=== PATIENT | male | born 1965 | race Caucasian/White ===

== ENCOUNTER 2019-04-01 13:57 | Outpatient (CLI) | payer BC, SELFPAY ==
[2019-04-01 14:19] LABS: Hemoglobin A1C 8.8 % (<5.7)
== END 2019-04-01 13:58 | disposition home or self-care (01) ==
PROVIDERS: PCP Internal Medicine; Visit Provider Internal Medicine
DX: E11.9 Type 2 diabetes mellitus without complications (principal)
CPT/HCPCS: 36415; 83036

== ENCOUNTER 2020-01-22 07:56 | Outpatient (CLI) | payer BC, SELFPAY ==
[2020-01-22 08:11] LABS: Basophils Absolute Auto 0.02 K/mm3 (0.00-0.10); Basophils Percent Auto 0.4 % (0.0-1.0); Eosinophils Absolute Auto 0.08 K/mm3 (0.02-0.50); Eosinophils Percent Auto 1.8 % (1.0-6.0); Hematocrit 44.1 % (40.0-54.0); Hemoglobin 14.9 g/dL (14.0-18.0); Immature Granulocyte Absolute 0.04 K/mm3 (0.00-0.00); Immature Granulocyte Percent A 0.9 % (0.0-0.0); Lymphocytes Absolute Auto 1.21 K/mm3 (1.10-4.50); Lymphocytes Percent Auto 26.9 % (18.0-42.0); Mean Corpuscular HGB Conc 33.8 g/dL (32.0-36.0); Mean Corpuscular Hemoglobin 28.8 pg (27.0-31.0); Mean Corpuscular Volume 85.1 fL (78.0-102.0); Mean Platelet Volume 10.7 fl (8.7-11.0); Monocytes Absolute Auto 0.51 K/mm3 (0.10-0.90); Monocytes Percent Auto 11.4 % (2.0-11.0); Neutrophils Absolute Auto 2.6 K/mm3 (1.7-7.2); Neutrophils Percent Auto 58.6 % (50.0-70.0); Platelet Count Result 190 K/mm3 (150-420); Red Blood Count 5.18 M/mm3 (4.70-6.10); Red Cell Distribution Width 13.6 % (11.6-14.4); White Blood Count 4.5 K/mm3 (4.8-10.8)
[2020-01-22 08:52] LABS: Alanine Aminotransferase 38 U/L (16-63); Albumin Level 4.2 g/dL (3.4-5.0); Alkaline Phosphatase 91 U/L (46-116); Anion Gap 11 mmol/L (8-16); Aspartate Amino Transferase 12 U/L (15-37); Bilirubin,Total 0.3 mg/dL (0.00-1.00); Blood Urea Nitrogen 13 mg/dL (7-18); Calcium 8.8 mg/dL (8.5-10.1); Carbon Dioxide 25 mmol/L (21-32); Chloride 102 mmol/L (98-108); Estimated Glomerular Filt Rate > 60; Glucose 227 mg/dL (70-99); Osmolality Calculated 293 mOsm/kg (285-295); Potassium 4.7 mmol/L (3.5-5.1); Sodium 138 mmol/L (136-145); Total Protein 6.9 g/dL (6.4-8.2)
== END 2020-01-22 07:57 | disposition home or self-care (01) ==
LOC: CHSLAB 07:58
PROVIDERS: PCP Internal Medicine; Visit Provider Internal Medicine
DX: E11.9 Type 2 diabetes mellitus without complications (principal)
CPT/HCPCS: 36415; 80053; 83036; 85025

== ENCOUNTER 2020-07-20 07:13 | Outpatient (CLI) | payer BC, SELFPAY ==
[2020-07-20 07:30] LABS: Basophils Absolute Auto 0.03 K/mm3 (0.00-0.10); Basophils Percent Auto 0.7 % (0.0-1.0); Eosinophils Absolute Auto 0.12 K/mm3 (0.02-0.50); Eosinophils Percent Auto 2.7 % (1.0-6.0); Hematocrit 43.2 % (40.0-54.0); Hemoglobin 14.8 g/dL (14.0-18.0); Immature Granulocyte Absolute 0.04 K/mm3 (0.00-0.00); Immature Granulocyte Percent A 0.9 % (0.0-0.0); Lymphocytes Absolute Auto 1.31 K/mm3 (1.10-4.50); Lymphocytes Percent Auto 29.6 % (18.0-42.0); Mean Corpuscular HGB Conc 34.3 g/dL (32.0-36.0); Mean Corpuscular Hemoglobin 28.2 pg (27.0-31.0); Mean Corpuscular Volume 82.3 fL (78.0-102.0); Mean Platelet Volume 10.1 fl (8.7-11.0); Monocytes Absolute Auto 0.43 K/mm3 (0.10-0.90); Monocytes Percent Auto 9.7 % (2.0-11.0); Neutrophils Absolute Auto 2.5 K/mm3 (1.7-7.2); Neutrophils Percent Auto 56.4 % (50.0-70.0); Platelet Count Result 213 K/mm3 (150-420); Red Blood Count 5.25 M/mm3 (4.70-6.10); Red Cell Distribution Width 13.1 % (11.6-14.4); White Blood Count 4.4 K/mm3 (4.8-10.8)
[2020-07-20 07:37] LABS: Add Urine Microscopic? YES; Appearance Urine Clear (Clear); Bilirubin Urine Negative (Negative); Blood Urine Negative (Negative); Color Urine Yellow (Yellow); Glucose Urine UA 3+ (Negative); Ketones Urine Negative (Negative); Leukocyte Esterase Ur Negative (Negative); Nitrate Urine Negative (Negative); Protein Urine Negative (Negative); Urobilinogen Urine 0.2 mg/dL (0.2-1.0); pH Urine 5.5 (5.0-8.0)
[2020-07-20 07:38] LABS: Hemoglobin A1C 7.8 % (<5.7)
[2020-07-20 07:55] LABS: Creatinine Urine 50.97 mg/dL (40-278); MALB Creatinine Ratio 25.5 mg/g (0-30); Microalbumin Urine Random < 13.0 mg/L
[2020-07-20 07:58] LABS: Bacteria Urine None seen /hpf; RBC Urine None seen /hpf (0-2); WBC Urine None seen /hpf (0-3)
[2020-07-20 08:46] LABS: Alanine Aminotransferase 31 U/L (16-63); Albumin Level 3.6 g/dL (3.4-5.0); Alkaline Phosphatase 96 U/L (46-116); Anion Gap 9 mmol/L (8-16); Aspartate Amino Transferase < 10 U/L (15-37); Bilirubin,Total 0.5 mg/dL (0.00-1.00); Blood Urea Nitrogen 17 mg/dL (7-18); Calcium 8.5 mg/dL (8.5-10.1); Carbon Dioxide 25 mmol/L (21-32); Chloride 98 mmol/L (98-108); Cholesterol 150 mg/dL (0-200); Estimated Glomerular Filt Rate > 60; Glucose 245 mg/dL (70-99); HDL Direct 36 mg/dL (40-60); LDL Cholesterol Calculated 67 mg/dL (<130); Osmolality Calculated 283 mOsm/kg (285-295); Potassium 4.8 mmol/L (3.5-5.1); Prostate Specific Antigen 1.2 ng/mL (< OR = 4.0); Sodium 132 mmol/L (136-145); Total Protein 6.4 g/dL (6.4-8.2); Triglycerides 236 mg/dL (0-150)
== END 2020-07-20 07:14 | disposition home or self-care (01) ==
LOC: CHSLAB 07:15
PROVIDERS: PCP Internal Medicine; Visit Provider Internal Medicine
DX: Z00.00 Encounter for general adult medical examination without abnormal findings (principal); E11.9 Type 2 diabetes mellitus without complications; J44.9 Chronic obstructive pulmonary disease, unspecified; Z12.5 Encounter for screening for malignant neoplasm of prostate
CPT/HCPCS: 36415; 80053; 80061; 81001; 82043; 83036; 84153; 85025; G0103

== ENCOUNTER 2021-02-02 15:48 | Outpatient (CLI) | payer BC, SELFPAY ==
[2021-02-02 16:13] LABS: Creatinine Urine 107.97 mg/dL (40-278); MALB Creatinine Ratio 12.5 mg/g (0-30); Microalbumin Urine Random 13.5 mg/L
[2021-02-02 16:53] LABS: Alanine Aminotransferase 46 U/L (16-63); Albumin Level 4.2 g/dL (3.4-5.0); Alkaline Phosphatase 94 U/L (46-116); Anion Gap 8 mmol/L (8-16); Aspartate Amino Transferase 12 U/L (15-37); Bilirubin,Total 0.3 mg/dL (0.00-1.00); Blood Urea Nitrogen 19 mg/dL (7-18); Calcium 9.3 mg/dL (8.5-10.1); Carbon Dioxide 30 mmol/L (21-32); Chloride 102 mmol/L (98-108); Estimated Glomerular Filt Rate > 60; Glucose 172 mg/dL (70-99); Osmolality Calculated 296 mOsm/kg (285-295); Potassium 4.6 mmol/L (3.5-5.1); Sodium 140 mmol/L (136-145); Thyroid Stimulating Hormone 1.51 uIU/mL (0.36-3.74)
== END 2021-02-02 15:49 | disposition home or self-care (01) ==
LOC: CHSLAB 15:50
PROVIDERS: PCP Internal Medicine; Visit Provider Internal Medicine
DX: E11.9 Type 2 diabetes mellitus without complications (principal); J44.9 Chronic obstructive pulmonary disease, unspecified
CPT/HCPCS: 36415; 80053; 82043; 83036; 84443

== ENCOUNTER 2021-02-11 08:12 | Emergency (ER) | payer BC, SELFPAY ==
--- NOTE | ~2021-02-11 | CT_ITS ---
EXAMINATION: CT abdomen pelvis wo con DATE: 02/11/2021 11:06 INDICATION: Left flank pain. TECHNIQUE: Computed tomography (CT) of the abdomen and pelvis was performed without intravenous contr ast. Automated exposure control and iterative reconstruction technique were employed. The dose-length product was 1172.40 mGy-cm. COMPARISON: Chest CT 07/07/2018 FINDINGS: The visualized portions of the lung bases demonstrates mild atelectasis and scarring in rig ht lower lobe. There is bronchiectasis in right lower lobe. There are groundglass opacities and small nodules in right lower lobe. Calcified bilateral lung nodules and calcified hilar lymph nodes are co nsistent with old granulomatous disease. There are old right rib fractures with plate and screw fixat ion of multiple ribs. The liver, gallbladder, spleen, pancreas, and left adrenal gland are normal. Ri ght adrenal gland is small. The kidneys are normal. There is no urolithiasis. The prostate is mildly enlarged. There is a filter in the inferior vena cava. There is a left inguinal hernia containing fat . There is diverticulosis of the colon without evidence of diverticulitis. The appendix is normal. Th ere are no dilated loops of bowel. There are no pathologically enlarged lymph nodes. There is no free intraperitoneal fluid. There is plate and screw fixation of the pubic symphysis. There is a lag scre w spanning the sacrum and iliac bones. There is a lag screw spanning left sacroiliac joint. There is mild thoracolumbar spondylosis. IMPRESSION: 1. Left inguinal hernia containing fat. 2. Chronic infection and bronchiectasis involving right lung lower lobe. Reviewed, dictated and finalized at location A. ING SALON ATTENDANT
[2021-02-11 09:00] VITALS: BP 148/92; PULSE 79; RESP 20; TEMP 36.7; O2SAT 96
[2021-02-11 09:20] LABS: Add Urine Microscopic? YES; Appearance Urine Clear (Clear); Bilirubin Urine Negative (Negative); Blood Urine Negative (Negative); Color Urine Light Yellow (Yellow); Glucose Urine UA 3+ (Negative); Ketones Urine Negative (Negative); Leukocyte Esterase Ur Negative (Negative); Nitrate Urine Negative (Negative); Protein Urine Negative (Negative); Specific Grav Ur 1.015 (1.010-1.020); Urobilinogen Urine 0.2 mg/dL (0.2-1.0)
[2021-02-11 09:24] LABS: Bacteria Urine None seen /hpf; RBC Urine 0-2 /hpf (0-2); Squamous Epithelial Cell Urine None seen /hpf (Few); WBC Urine 0-3 /hpf (0-3)
--- NOTE | 2021-02-11 10:42 | PC.NURSE ---
pt takes mulitple medications but no list or dose available
[2021-02-11] MEDS: KETOROLAC (*BKC) 60 MG/2 ML VIAL IM (11:03)
[2021-02-11 11:13] LABS: Basophils Absolute Auto 0.04 K/mm3 (0.00-0.10); Basophils Percent Auto 0.7 % (0.0-1.0); Eosinophils Absolute Auto 0.14 K/mm3 (0.02-0.50); Eosinophils Percent Auto 2.5 % (1.0-6.0); Hematocrit 45.1 % (40.0-54.0); Hemoglobin 15.8 g/dL (14.0-18.0); Immature Granulocyte Absolute 0.03 K/mm3 (0.00-0.00); Immature Granulocyte Percent A 0.5 % (0.0-0.0); Lymphocytes Absolute Auto 1.18 K/mm3 (1.10-4.50); Lymphocytes Percent Auto 21.1 % (18.0-42.0); Mean Corpuscular Hemoglobin 28.7 pg (27.0-31.0); Mean Platelet Volume 10.3 fl (8.7-11.0); Monocytes Absolute Auto 0.45 K/mm3 (0.10-0.90); Neutrophils Absolute Auto 3.8 K/mm3 (1.7-7.2); Neutrophils Percent Auto 67.2 % (50.0-70.0); Platelet Count Result 220 K/mm3 (150-420); White Blood Count 5.6 K/mm3 (4.8-10.8)
[2021-02-11 11:29] LABS: Alanine Aminotransferase 40 U/L (16-63); Albumin Level 3.8 g/dL (3.4-5.0); Alkaline Phosphatase 91 U/L (46-116); Anion Gap 9 mmol/L (8-16); Aspartate Amino Transferase 12 U/L (15-37); Bilirubin,Total 0.4 mg/dL (0.00-1.00); Blood Urea Nitrogen 16 mg/dL (7-18); Calcium 8.7 mg/dL (8.5-10.1); Carbon Dioxide 27 mmol/L (21-32); Chloride 102 mmol/L (98-108); Estimated CRCL calculation 132 ml/min; Estimated Glomerular Filt Rate > 60; Glucose 190 mg/dL (70-99); Osmolality Calculated 292 mOsm/kg (285-295); Potassium 4.5 mmol/L (3.5-5.1); Sodium 138 mmol/L (136-145)
--- NOTE | 2021-02-11 12:07 | ED.EXTPRO ---
HPI - Extremity Problem General Chief complaint: Extremity Problem,Nontraumatic Stated complaint: stabbing pain in left pelvis going down leg Time Seen by Provider: 02/11/21 09:01 Source: patient and RN notes reviewed Mode of arrival: ambulatory Limitations: no limitations History of Present Illness Complaint: extremity pain Onset (ago): week(s) (3) Location: left and lower extremity Severity scale (1-10): 7 Quality: aching, dull and constant Radiation: distal Relieving factors: nothing Exacerbating factors: walking Associated symptoms: denies other symptoms Related Data Home Medications Medication Instructions Recorded Confirmed Unable to Obtain Home Medications 02/11/21 02/11/21 Allergies Allergy/AdvReac Type Severity Reaction Status Date / Time No Known Allergies Allergy Unverified 04/09/17 09:30 Review of Systems Review of Systems: All systems reviewed & are unremarkable except as noted in HPI and below PMFSH Past Medical History Medical History (Updated 02/12/21 @ 10:01 by Inez Aguero MD) Sciatica of left side Exam Const: General: no acute distress and alert Nutritional Appearance: well nourished Orientation/consciousness: patient oriented x3 HENMT: Head: normal to inspection Ears: external ears normal and TM's normal bilaterally General nose exam: Normal external nose present and Normal nares present Mouth: Yes lip normal and Yes moist mucous membranes Teeth and gingiva: dentition normal Throat: posterior oropharynx normal Eyes: Conjunctivae: conjunctivae normal Pupils: Equal, round and reactive pupils present EOM: EOMs intact bilaterally Neck: Neck: normal visual inspection Chest: Chest palpation & inspection: normal inspection of the chest Resp: Effort & Inspection: normal respiratory effort Auscultation: rhonchi Cardio: Rate: regular rate Rhythm: regular rhythm GI: GI Palp: Yes Soft to palpation and No Tenderness to palpation present (GI) Percussion: Yes normal to percussion Auscultation: normal bowel sounds : General: Yes bladder normal to palpation and Yes no CVA tenderness Male General Exam: Yes normal external exam Back/Spine/Pelvis: Back: no CVA tenderness Other: minimally tender left posterior to lateral buttock on deep palpation Skin: General skin exam: normal color Rashes: no rashes Wounds: no wounds Neuro: General: patient oriented x3, moves all extremities, no focal motor deficits and CN's II-XI intact bilaterally Extrem: General: normal to inspection and no pedal edema Psych: Appearance: grossly normal and well kempt Mental Status: mental status grossly normal Affect: normal affect Thought content: Yes Normal thought content present Course Course Emergency Course: Pt was less pain-ful in the ED. Reevaluation(s) Reevaluation #1: VSS. pt ambulated normally in the ED. Date: 02/12/21 Time: 09:56 Vital Signs Vital signs: Vital Signs Temperature 36.7 C 02/11/21 09:00 Pulse Rate 79 02/11/21 09:00 Respiratory Rate 20 02/11/21 09:00 Blood Pressure 148/92 H 02/11/21 09:00 Pulse Oximetry 96 02/11/21 09:00 Temperature 36.7 C 02/11/21 09:00 Pulse Rate 78 02/11/21 12:20 Respiratory Rate 20 02/11/21 12:20 Blood Pressure 141/89 H 02/11/21 12:20 Pulse Oximetry 95 02/11/21 12:20 MDM - Extremity (Nontraumatic) Differential Diagnosis Differential diagnosis: Likely other (joint pain, arthritis, sciatica, ) Medical Records Attestation: I reviewed the patient's medical records. Lab Data Result diagrams: 02/11/21 11:08 02/11/21 11:08 Labs: Lab Results 02/11/21 02/11/21 02/11/21 Range/Units 09:05 11:08 11:08 WBC 5.6 (4.8-10.8) K/mm3 RBC 5.50 (4.70-6.10) M/mm3 Hgb 15.8 (14.0-18.0) g/dL Hct 45.1 (40.0-54.0) % MCV 82.0 (78.0-102.0) fL MCH 28.7 (27.0-31.0) pg MCHC 35.0 (32.0-36.0) g/dL RDW 13.0 (11.6-14.4) % Plt Count 220 (150-420
[2021-02-11 12:20] VITALS: BP 141/89; PULSE 78; RESP 20; O2SAT 95
== END 2021-02-11 12:24 | disposition home or self-care (01) ==
PROVIDERS: Emergency Provider Emergency Medicine; PCP Internal Medicine
DX: M54.32 Sciatica, left side (principal); J47.9 Bronchiectasis, uncomplicated
CPT/HCPCS: 36415; 74176; 80053; 81001; 85025; 96372; 99283; 99284; J1885

== ENCOUNTER 2021-11-16 07:51 | Outpatient (CLI) | payer BC, SELFPAY ==
--- NOTE | ~2021-11-16 | CT_ITS ---
EXAMINATION: CT lung screening DATE: 11/16/2021 09:42 INDICATION: Lung cancer screening TECHNIQUE: Computed tomography (CT) of the chest was performed without intravenous contrast. The dose -length product was 271.11 mGy-cm. Automated exposure control and iterative reconstruction technique were employed. COMPARISON: CT dated 07/07/2018 FINDINGS: Heart size is normal. There are calcified mediastinal lymph nodes, consistent with chronic granulomatous disease. There are scattered calcified bilateral pulmonary nodules. There is mild ather osclerosis of the aorta and coronary arteries. There is an IVC filter present. No significant pleural or pericardial effusion. There are surgical changes consistent with internal fixation of multiple ri ght ribs. Moderate thoracic spondylosis. There is emphysema. There is right lower lobe atelectasis/sc arring with bronchiectasis. There is an irregular shaped nodule in the right lower lobe measuring 1.5 x 0.4 cm, image 86. This is new compared with prior examination. Although this is possibly infectiou s/inflammatory, neoplasm not excluded. IMPRESSION: 1. Lung Rads category 4A, suspicious: follow-up low dose CT chest in 3 months or PET/CT recommended. Reviewed, dictated and finalized at location A. IMPRESSION: 1. Lung Rads category 4A, suspicious: follow-up low dose CT chest in 3 months o r PET/CT recommended.
--- NOTE | 2021-11-16 12:39 | WPDPFTINT ---
PFT Procedure Performed PFT Procedure Performed Spirometry with Pre/Post Bronchodilator Plethysmography (Lung Vol) Diffusing Cap (DLCO) Flow Vol Loop PFT Interpretation This is a pulmonary function test with pre and post-bronchodilator spirometry, plethysmography and diffusing capacity. The test was performed and results interpreted in accordance with the 2019 and 2005 ATS/ERS Task Force guidelines respectively using the Global Lung Function Initiative-2012 reference equations. Patient demonstrated good effort and cooperation. Reproducibility criteria were met. The quality of the pre bronchodilator spirometry maneuver was Grade A and post bronchodilator spirometry maneuver was Grade A. Findings: Spirometry: There is decreased maximal expiratory airflow at all lung volumes with concave expiratory flow tracing. Contour the inspiratory flow tracing is normal. The pre bronchodilator FVC is 3.29 L, 72% predicted. The pre bronchodilator FEV1 is 1.44 L, 40% predicted. The pre bronchodilator FEV1: FVC ratio is 44%. The post bronchodilator FVC is 3.55 L, representing an 8% increase. The post bronchodilator FEV1 is 1.62 L, representing a 180 ML increase which corresponds to a 12% increase. The post bronchodilator FEV1: FVC ratio is 46%. Plethysmography: The total lung capacity 6.57 L, 97% predicted. The functional residual capacity is 4.28 L, 123% predicted. The residual volume is 3.21 L, 152% predicted. Diffusing capacity: The diffusion capacity unadjusted for hemoglobin and carboxyhemoglobin is 21.1, 73% predicted. The diffusing capacity adjusted for alveolar volume is 4.35, 99% predicted. Impression: There is a severe obstructive abnormality without significant improvement after inhaling a single dose of albuterol as the absolute increase in FEV1 was less than 200 mL. The increase in residual volume is consistent with air trapping from an obstructive abnormality. The diffusing capacity is normal. There are no prior studies for comparison
--- NOTE | 2021-11-16 12:43 | WPDSIXMINUTE ---
Six Minute Walk Procedure Procedure Performed Pulmonary Stress Test (6 min walk) Six Minute Walk Six Minute Walk: This is a 6 minute walk test. The test was performed and interpreted in accordance with the 2014 ERS/ATS task force guidelines. Findings: The patient's resting room air oxygen saturation measured by pulse oximetry was 94% and heart rate was 78 bpm. Patient ambulated for 396 meters and oxygen saturation remained 89 to 94%. Heart rate at the end of the study was 100 bpm. The patient did not qualify for supplemental oxygen at rest or with ambulation. There are no prior studies for comparison.
== END 2021-11-16 07:52 | disposition home or self-care (01) ==
PROVIDERS: PCP Internal Medicine; Visit Provider Internal Medicine Pulmonary Disease
DX: J40 Bronchitis, not specified as acute or chronic (principal); R06.00 Dyspnea, unspecified; Z87.891 Personal history of nicotine dependence; Z12.2 Encounter for screening for malignant neoplasm of respiratory organs; R91.8 Other nonspecific abnormal finding of lung field; R94.2 Abnormal results of pulmonary function studies
CPT/HCPCS: 71271; 94060; 94618; 94726; 94729

== ENCOUNTER 2021-11-21 07:57 | Outpatient (CLI) | payer BC, SELFPAY ==
--- NOTE | 2021-12-21 14:33 | WPDSLEEPSTUD ---
Sleep Study Date of Study: 11/21/21 Ordering Provider: Eren Rosario MD Interpreting Physician: Maria Elena Gaming DO Sleep Study Type: Polysomnogram Height: 1.75 m Weight: 102.058 kg Body Mass Index: 33.2 Neck Circumference (inches): 16.5 [place]: 6 Reason for Sleep Study The patient has known EVANGELISTA and is on CPAP 9 cm H2O at home. Needs new supplies. Sleep History The patient is a 56-year-old male with diabetes, GERD, neuropathy, COPD, history of tobacco use sleep apnea had a sleep study ordered his [place] [employer] to requalify for PAP Therapy. 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 He occasionally awakens from sleep short of breath. He denies awakening at night with heartburn, belching or cough. He constantly snores loud enough that others complain. He frequently has trouble sleeping when he has a cold. He frequently wakes up gasping for air throughout the night. He frequently has breathing problems at night observed by himself or others. He denies sweating excessively at night. He denies having heart palpitations or irregular heartbeats during the night. He occasionally falls asleep during the day but never while driving. He denies sleep paralysis, cataplexy and hypnagogic / hypnopompic hallucinations. He frequently has trouble at school or work due to sleepiness. He denies feeling afraid of going to sleep. He denies having nightmares. He denies remember his dreams. He denies having thoughts racing through his mind. He denies feeling sad, depressed or anxious. He occasionally has muscular tension. He occasionally notices parts of his body jerk. He occasionally kicks during the night. He frequently has crawling and aching feelings in his legs but never has leg pain throughout the night. He occasionally grinds his teeth during sleep but never awakens with morning jaw pain. He is constantly bothered by pain during the day but never awakened by pain during the night. He frequently wakes up feeling stiff the morning. He frequently wakes up with sore or achy muscles. He frequently wakes up with pain in the neck, spine or other joints. He goes to bed between 7-8 p.m. on weekdays. He does not have a set bedtime on the weekends. He can fall asleep instantly. He wakes up twice throughout the night to use the restroom. He can fall back asleep immediately. He wakes up at 4:00 a.m. on weekdays but does not have a set wake-up time on the weekends. He typically gets 8-10 hours of sleep per night. He does not stay in bed after waking morning. He currently lives with his . He will consume caffeinated beverages within 2 hours of bedtime. He does not engage in physical exercise before bedtime. He will watch television before falling asleep. He will take naps in the afternoon or the evening and they are refreshing. He drinks 2 coffees and 2 teas per day. He quit smoking cigarettes 9 years ago. He drinks alcohol occasionally. He denies recreational drug use. [facility] Past Medical History Medical History (Updated 12/21/21 @ 14:55 by Maria Elena Gaming DO) COPD (chronic obstructive pulmonary disease) Diabetes GERD (gastroesophageal reflux disease) EVANGELISTA (obstructive sleep apnea) Sciatica of left side Social History Social History Smoking status: Former smoker Medications Home Medications Medication Instructions Recorded Confirmed Type ibuprofen 800 mg tablet 800 mg PO TID PRN pain #20 tabs 02/11/21 11/06/21 Rx omeprazole magnesium 20 mg 20 mg PO BID #20 tabs 02/11/21 11/06/21 Rx tablet,delayed release (Prilosec OTC) tramadol 50 mg tablet 50 mg PO BID PRN pain #6 tabs 02/11/21 11/06/21 Rx Sleep Procedure This test was performed using the [employer] SleepZinch multiple channel system including EOG, EEG, submental EMG, EKG, nasal and oral airflow using thermistors and nasal pressure sensors, chest and abdominal belts for body position data, and pul
[2021-12-21 14:42] VITALS: BMI 33.2
== END 2021-11-22 06:47 | disposition home or self-care (01) ==
LOC: ANHCSM 07:59
PROVIDERS: PCP Internal Medicine; Visit Provider Internal Medicine Pulmonary Disease
DX: G47.33 Obstructive sleep apnea (adult) (pediatric) (principal); G47.10 Hypersomnia, unspecified
CPT/HCPCS: 95810

== ENCOUNTER 2022-02-04 14:13 | Outpatient (CLI) | payer BC, SELFPAY ==
--- NOTE | ~2022-02-04 | XR_ITS ---
EXAMINATION: XR chest 2V DATE: 02/04/2022 14:33 INDICATION: COPD presenting with pneumonia, cough, congestion and fever TECHNIQUE: PA and lateral views of the chest were obtained. COMPARISON: Chest radiograph dated 05/26/[address] dated 11/16/2021 and 07/07/2018 FINDINGS: Stable appearance of coarse reticular opacities in the posterior right lower lung zone consistent wit h chronic atelectasis/scarring with associated mild bronchiectasis. Again seen are few scattered bila teral calcified pulmonary nodules along with calcified hilar and mediastinal lymph nodes consistent w ith old granulomatous disease. No new airspace opacities, pulmonary edema, pleural effusion or pneumo thorax. The cardiomediastinal silhouette is normal. Plate and screw fixation along the posterolateral right fourth-eighth rib fractures. IMPRESSION: 1. Stable appearance of chronic atelectasis/scarring with bronchiectasis in the right lower lobe. Reviewed, dictated and finalized at location A. ING SERVICE TECHNICIAN
== END 2022-02-04 14:14 | disposition home or self-care (01) ==
LOC: CHSIMG 14:15
PROVIDERS: PCP Internal Medicine; Visit Provider Internal Medicine
DX: J18.9 Pneumonia, unspecified organism (principal); J44.9 Chronic obstructive pulmonary disease, unspecified
CPT/HCPCS: 71046

== ENCOUNTER 2022-02-06 08:50 | Emergency (ER) | payer BC, SELFPAY ==
--- NOTE | ~2022-02-06 | CT_ITS ---
EXAMINATION: CT diagnostic chest wo con DATE: 02/06/2022 10:03 INDICATION: Cough, fever, shortness of breath TECHNIQUE: Computed tomography (CT) of the chest was performed without intravenous contrast. The dose -length product (DLP) was 483.70 mGy-cm. Automated exposure control and iterative reconstruction tech [place] were employed. COMPARISON: 11/16/2021 FINDINGS: A 2.3 x 0.8 cm nodule of the right lower lobe demonstrates interval enlargement since the c omparison examination. There is moderate emphysema. Calcified pulmonary nodules and calcified bilater al hilar and mediastinal lymph nodes are consistent with old granulomatous disease. There are minimal chronic tree-in-bud opacities of the right lower lobe as well as mild chronic bronchiectasis with a lower lung zone predominance. There are minimal tree-in-bud opacities of the upper lobes. No pleural effusion or pneumothorax. Surgical changes involving multiple right-sided ribs are again noted. There is mild bilateral gynecomastia. No pathologically enlarged thoracic lymph nodes are identified. The heart size is normal. There is moderate thoracic spondylosis. IMPRESSION: 1. Minimal tree-in-bud opacities of the upper lobes, likely infectious or inflammatory. 2. Enlarging right lower lobe nodule for which CT-guided biopsy is recommended. Reviewed, dictated and finalized at location A. MACEUTICAL PROCESS ENGINEER IMPRESSION: 1. Minimal tree-in-bud opacities of the upper lobes, likely infectious or infla mmatory. 2. Enlarging right lower lobe nodule for which CT-guided biopsy is recommended.
[2022-02-06 08:50] VITALS: BP 155/86; PULSE 106; RESP 20; TEMP 37.6; O2SAT 94
--- NOTE | 2022-02-06 09:26 | ECG_ITS ---
Measurements Intervals [place] Rate: 103 P: 61 OK: 154 QRS: 57 QRSD: 90 T: 67 QT: 326 QTc: 428 Interpretive Statements SINUS TACHYCARDIA ABNORMAL RHYTHM ECG NO PREVIOUS ECG AVAILABLE FOR COMPARISON Electronically Signed On 02-06-2022 15:51:48 SHOULDER JOINER by Noemi Owens M.D.
[2022-02-06] MEDS: IPRATROPIUM 0.5 MG/ALBUTEROL SULFATE 2.5 MG AMPUL.NEB 3 ML INHALATION (09:40)
[2022-02-06 09:41] VITALS: PULSE 98; RESP 18; O2SAT 94
[2022-02-06 09:41] LABS: Hematocrit 41.8 % (40.0-54.0); Hemoglobin 14.1 g/dL (14.0-18.0); Mean Corpuscular HGB Conc 33.7 g/dL (32.0-36.0); Mean Corpuscular Hemoglobin 28.1 pg (27.0-31.0); Mean Corpuscular Volume 83.4 fL (78.0-102.0); Mean Platelet Volume 10.1 fl (8.7-11.0); Platelet Count Result 188 K/mm3 (150-420); Red Blood Count 5.01 M/mm3 (4.70-6.10); Red Cell Distribution Width 13.6 % (11.6-14.4); White Blood Count 3.9 K/mm3 (4.8-10.8)
[2022-02-06 09:42] LABS: Base Excess ABG 0.1 mmol/L (0-2); HCO3 ABG 23.7 mmol/L (23-29); Oxygen Content ABG 19.6 %vol (16.0-22.0); Oxygen Saturation ABG 94.2 % (95-97); Oxyhemoglobin 93.4 % (94-100); PCO2 ABG 35.7 mmHg (35-45); PO2 ABG 70.6 mmHg (80-90); Total Hemoglobin 14.9 g/dL (12.0-18.0); pH ABG 7.44 (7.35-7.45)
[2022-02-06 09:42] LABS: Influenza A QL RT-PCR Positive (Negative); Influenza B QL RT-PCR Negative (Negative); RSV RNA, RT-PCR Negative (Negative); SARS-CoV-2 RNA PCR Negative (Negative)
[2022-02-06 09:43] LABS: Modified Allen's Test Pass; Site Drawn LEFT RADIAL
[2022-02-06 09:44] LABS: Device ROOM AIR
[2022-02-06 09:47] VITALS: PULSE 101; RESP 13; O2SAT 98
[2022-02-06 10:03] LABS: Lactic Acid Reflex 1.2 mmol/L (0.4-2.0)
[2022-02-06] MEDS: SODIUM CHLORIDE 0.9% IV 500 ML 999 ML IV CONT (10:05)
[2022-02-06] MEDS: ACETAMINOPHEN 325 MG TABLET 650 MG PO (10:06)
[2022-02-06] MEDS: methylPREDNISolone SOD SUCC 125 MG VIAL IV PUSH (10:06)
[2022-02-06 10:10] LABS: Alanine Aminotransferase 35 U/L (16-63); Albumin Level 3.1 g/dL (3.4-5.0); Alkaline Phosphatase 70 U/L (46-116); Anion Gap 10 mmol/L (8-16); Aspartate Amino Transferase 24 U/L (15-37); Bilirubin,Total 0.3 mg/dL (0.00-1.00); Blood Urea Nitrogen 17 mg/dL (7-18); Calcium 8.5 mg/dL (8.5-10.1); Carbon Dioxide 25 mmol/L (21-32); Chloride 99 mmol/L (98-108); Estimated CRCL calculation 103 ml/min; Estimated Glomerular Filt Rate > 60; Glucose 254 mg/dL (70-99); NT Pro B Type Natriuretic Pept 24 pg/mL (0-125); Osmolality Calculated 288 mOsm/kg (285-295); Potassium 4.1 mmol/L (3.5-5.1); Sodium 134 mmol/L (136-145); Troponin I 5.5 ng/L (0.00-60.4)
[2022-02-06 10:14] LABS: Add Urine Microscopic? YES; Appearance Urine Clear (Clear); Bilirubin Urine Negative (Negative); Blood Urine Negative (Negative); Color Urine Yellow (Yellow); Glucose Urine UA 3+ (Negative); Ketones Urine 2+ (Negative); Leukocyte Esterase Ur Negative (Negative); Nitrate Urine Negative (Negative); Protein Urine 1+ (Negative)
[2022-02-06 10:16] LABS: Band Neutrophils Percent 4 % (0-6); Lymphocytes Absolute Manual 0.35 K/mm3 (1.1-4.5); Lymphocytes Percent Manual 9 % (18-44); Monocytes Absolute Manual 0.15 K/mm3 (0.1-0.90); Monocytes Percent Manual 4 % (3-9); Neutrophils Absolute Manual 3.39 K/mm3 (1.3-6.7); Neutrophils Percent Manual 83 % (46-73); Platelet Estimate Adequate (Adequate); Total Cells Counted 100
[2022-02-06 10:20] LABS: RBC Urine None seen /hpf (0-2); WBC Urine None seen /hpf (0-3)
[2022-02-06 10:21] LABS: Bacteria Urine Trace /hpf
[2022-02-06 12:06] VITALS: BP 140/80; PULSE 82; RESP 19; TEMP 37.2; O2SAT 96
--- NOTE | 2022-02-06 12:58 | ED.URI ---
HPI - URI/Sore Throat General Chief Complaint: Upper Respiratory Infection Stated Complaint: sob Time Seen by Provider: 02/06/22 08:52 Source: patient and RN notes reviewed Mode of arrival: ambulatory History of Present Illness MD elicited complaint: fever, cough and nasal congestion Pertinent past history: COPD Onset (ago): day(s) (2) Consistency: progressively worsening Severity: moderate Pain scale (0-10): 3 Able to tolerate fluids by mouth: Yes Exacerbating factors: nothing Relieving factors: cough suppressant Associated symptoms: fever, chills, myalgias, nasal congestion, cough and shortness of breath Related Data Home Medications Medication Instructions Recorded Confirmed albuterol sulfate 0.63 mg/3 mL 0.63 mg inhalation Q4-6H PRN 01/01/22 02/06/22 solution for nebulization Shortness Of Breath Or Wheezing albuterol sulfate 90 mcg/actuation 1 puff inhalation Q4H PRN 01/01/22 02/06/22 aerosol inhaler Shortness Of Breath Or Wheezing aspirin 81 mg tablet,delayed 81 mg PO DAILY 01/01/22 02/06/22 release gabapentin 300 mg capsule 300 mg PO BID 01/01/22 02/06/22 glimepiride 2 mg tablet 2 mg PO QAM 01/01/22 02/06/22 metformin 500 mg tablet 500 mg PO BID 01/01/22 02/06/22 montelukast 10 mg tablet 10 mg PO DAILY 01/01/22 02/06/22 pantoprazole 40 mg tablet,delayed 40 mg PO QAM 01/01/22 02/06/22 release ropinirole 0.5 mg tablet 0.5 mg PO .prn 01/01/22 02/06/22 tiotropium bromide 2.5 1 puff inhalation BID 01/01/22 02/06/22 mcg/actuation mist for inhalation (Spiriva Respimat) Allergies Allergy/AdvReac Type Severity Reaction Status Date / Time No Known Allergies Allergy Unverified 01/01/22 13:55 Review of Systems Review of Systems: All systems reviewed & are unremarkable except as noted in HPI and below Constitutional: Constitutional: Reports no additional constitutional complaints Eyes: Eyes: Reports no additional eye complaints ENT: Reports system reviewed and no additional complaints, except as documented Cardiovascular: Cardiovascular: Reports no additional cardiovascular complaints Respiratory: Respiratory: Reports no additional respiratory complaints Gastrointestinal: Gastrointestinal: Reports no additional gastrointestinal complaints Musculoskeletal: Musculoskeletal: Reports no additional musculoskeletal complaints Integumentary/Breasts: Skin/Breast: Reports system reviewed and no additional complaints, except as docu Neurologic: Reports system reviewed and no additional complaints, except as documented Psychiatric: Psychiatric: Reports no additional psychiatric complaints Endocrine: Endocrine: Reports no additional endocrine complaints Hematologic/Lymphatic: Hematologic/Lymphatic: Reports no additional hematologic/lymphatic complaints Allergic/Immunologic: Allergic/Immunologic: Reports no additional allergic/immunologic complaints PMFSH Past Medical History Medical History Bronchitis COPD (chronic obstructive pulmonary disease) Diabetes GERD (gastroesophageal reflux disease) EVANGELISTA (obstructive sleep apnea) Sciatica of left side Social History Social History Smoking packs per day: 1.5 Smoking cigarettes per day: 30.0 Years smoked: 16 Smoking pack-years: 24.00 Smoking status: Former smoker Exam Const: General: no acute distress, diaphoretic (mild) and well nourished Nutritional Appearance: well nourished Orientation/consciousness: patient oriented x3 Limitations: no limitations HENMT: Head: normal to inspection Ears: external ears normal, TM's normal bilaterally and EAC's normal Face/Nose/Sinus: Normal external nose present, Normal nares present, normal facial exam and sinuses nontender Face and sinus: normal facial exam and sinuses nontender Mouth: Yes Normal oral and palatal mucosa present and Yes moist mucous membranes Teeth and gingiva: dentition norm
[2022-02-06 13:17] VITALS: BP 108/73; PULSE 76; RESP 20; TEMP 36.9; O2SAT 97
== END 2022-02-06 13:28 | disposition home or self-care (01) ==
PROVIDERS: Emergency Provider Emergency Medicine; PCP Internal Medicine
DX: J44.9 Chronic obstructive pulmonary disease, unspecified (principal); E11.9 Type 2 diabetes mellitus without complications; Z79.82 Long term (current) use of aspirin; Z87.891 Personal history of nicotine dependence; Z20.822 Contact with and (suspected) exposure to COVID-19
CPT/HCPCS: 36415; 36600; 71250; 80053; 81001; 82805; 83605; 83880; 84484; 85025; 87637; 93005; 94640; 96361; 96365; 96375; 99284; A9270; J0696; J2930; J7040

== ENCOUNTER 2022-02-15 07:39 | Outpatient (CLI) | payer BC, SELFPAY ==
--- NOTE | ~2022-02-15 | CT_ITS ---
EXAMINATION: CT diagnostic chest wo con DATE: 02/15/2022 08:05 INDICATION: lung nodule TECHNIQUE: Computed tomography (CT) of the chest was performed without intravenous contrast. Addition al 3D reconstructions utilizing coronal maximum intensity projection (MIP) were performed. Automated exposure control and iterative reconstruction technique were employed. The dose-length product was 49 1.24 mGy-cm. COMPARISON: 02/06/2022 FINDINGS: Mild emphysema. There several scattered bilateral calcified pulmonary nodules along with calcified bi lateral hilar and mediastinal lymph nodes and a single splenic calcific location, all consistent with old granulomatous disease. Chronic scarring in the right lower lobe which may be related to prior tr auma given that it underlies multiple old healed rib fractures with plate and screw fixations. There are bronchiectatic changes within this region of scarring. Interval resolution of mucus which had pre viously been feeling of the region of bronchiectasis which accounted for the artifactual appearance o f enlarging right lower lobe nodule and with interval decrease in outer diameter of the now air-fille d dilated bronchus. There are a few additional unchanged <4 mm pulmonary nodules and likely intrafiss ural lymph nodes primarily in the left upper lobe and along the left major fissure. No other new or e nlarging pulmonary nodules. Heart size is normal. No pericardial or pleural effusion. Thoracic aorta is normal in caliber. No pathologically enlarged thoracic lymphadenopathy. Bilateral gynecomastia. Pa rtially visualized infrarenal IVC filter. 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 Incidentally noted is an adjacent right-s ided os acromiale. Partially visualized anterior and posterior spinal fusion at C6-C7 with bilateral vertical liam and pedicle screw fixation which appears on the boomswing operator topogram to extend cephalad to at least the C5 level. IMPRESSION: 1. The irregular enlarging nodule of concern on the prior study appears to have represented now resol otilio mucus filling of a now gas-filled dilated bronchus. No new or enlarging pulmonary nodules identif ied. Given the interval change in the lung findings would not be categorized as Lung-RADS category 2: Benign appearance or behavior. Continue annual screening with noncontrast low-dose chest CT in 12 mo nt. Reviewed, dictated and finalized at location B. L SHAPER HAND IMPRESSION: 1. The irregular enlarging nodule of concern on the prior study appears to have represented now resolved mucus filling of a now gas-filled dilated bronchus. N o new or enlarging pulmonary nodules identified. Given the interval change in t he lung findings would not be categorized as Lung-RADS category 2: Benign appea erickson or behavior. Continue annual screening with noncontrast low-dose chest CT in 12 months.
== END 2022-02-15 07:40 | disposition home or self-care (01) ==
PROVIDERS: PCP Internal Medicine; Visit Provider Internal Medicine Pulmonary Disease
DX: R91.1 Solitary pulmonary nodule (principal)
CPT/HCPCS: 71250

== ENCOUNTER 2023-02-19 09:40 | Outpatient (CLI) | payer BC, SELFPAY ==
--- NOTE | ~2023-02-19 | CT_ITS ---
EXAMINATION:CT lung screening DATE: 02/19/2023 10:04 INDICATION: Personal history of nicotine dependence. Smoker who quit 8 years ago with 51 pack year hi story. TECHNIQUE: Computed tomography (CT) of the chest was performed without intravenous contrast. Automate d exposure control and iterative reconstruction technique were employed. The dose-length product (DLP ) was 267.12 mGy-cm. COMPARISON: Chest CT 02/15/2022 FINDINGS: There is mild emphysema. Calcified pulmonary nodules and calcified hilar and mediastinal ly mph nodes are consistent with old granulomatous disease. There are a few small groundglass opacities in the lungs. There is chronic peripheral septal thickening in right lung. There is peripheral bronch iectasis in right lower lobe. There are a few nodules in right middle lobe and right lower lobe measu ring up to 4 mm, probably infection. No pleural effusion. The heart size is normal. No pericardial ef fusion. There is bilateral gynecomastia. There is a filter in the inferior vena cava. There are multi ple old right rib fractures. There is plate and screw fixation of multiple right ribs. There is an ol d healed fracture of right clavicle. There are changes of posterior fusion procedure in cervical spin e. There is mild chronic anterior wedging of multiple vertebral bodies. There is moderate thoracic sp ondylosis. IMPRESSION: 1. Lung-RADS category 3: Probably benign. Further evaluation is recommended with noncontrast low-dose chest CT in 6 months. Reviewed, dictated and finalized at location E. [employer] IMPRESSION: 1. Lung-RADS category 3: Probably benign. Further evaluation is recommended wit h noncontrast low-dose chest CT in 6 months.
== END 2023-02-19 09:41 | disposition home or self-care (01) ==
PROVIDERS: PCP Internal Medicine; Visit Provider Internal Medicine Pulmonary Disease
DX: Z12.2 Encounter for screening for malignant neoplasm of respiratory organs (principal); R91.8 Other nonspecific abnormal finding of lung field; Z87.891 Personal history of nicotine dependence
CPT/HCPCS: 71271

== ENCOUNTER 2023-11-05 15:09 | Outpatient (CLI) | payer BC, SELFPAY ==
--- NOTE | ~2023-11-05 | CT_ITS ---
EXAMINATION:CT diagnostic chest wo con DATE: 11/05/2023 15:26 INDICATION: Solitary pulmonary nodule. TECHNIQUE: Computed tomography (CT) of the chest was performed without intravenous contrast. Automate d exposure control and iterative reconstruction technique were employed. The dose-length product (DLP ) was 274.95 mGy-cm. COMPARISON: Chest CT 02/19/2023 FINDINGS: There is mild emphysema. Calcified pulmonary nodules and calcified hilar mediastinal lymph nodes are consistent with old granulomatous disease. There is bronchiectasis in right lower lobe. The re are chronic tree-in-bud opacities in right lower lobe. There is mild atelectasis and scarring in r ight lower lobe. No pleural effusion. The heart size is normal. There are coronary artery calcificati ons. No pericardial effusion. There is a filter in the inferior vena cava. There is mild bilateral gy necomastia. There are old healed rib fractures. There is plate and screw fixation of multiple right r ibs. There is mild thoracic spondylosis. There is mild chronic anterior wedging of multiple vertebral bodies. IMPRESSION: 1. Lung-RADS category 2: Benign appearance or behavior. Continue annual screening with noncontrast lo w-dose chest CT in 12 months. Reviewed, dictated and finalized at location A. IMPRESSION: 1. Lung-RADS category 2: Benign appearance or behavior. Continue annual screeni ng with noncontrast low-dose chest CT in 12 months.
== END 2023-11-05 15:10 | disposition home or self-care (01) ==
LOC: ANHIMG 15:13
PROVIDERS: PCP Internal Medicine; Visit Provider Internal Medicine Pulmonary Disease
DX: R91.1 Solitary pulmonary nodule (principal)
CPT/HCPCS: 71250

== ENCOUNTER 2024-09-27 00:35 | Day surgery (SDC) | payer BC, SELFPAY ==
[2024-06-03 12:29] VITALS: BMI 31.8
[2024-09-08 15:19] VITALS: BMI 31.8
--- NOTE | 2024-09-27 07:28 | WPDANESEPPF ---
Anes - Initial Pre Proc Eval Procedure: Operation Date: 09/27/24 10:00 Proposed Procedures p Colonoscopy - Simone Tuttle MD Date/Time: 09/27/24 07:28 Surgeon: Simone Tuttle MD Pre Op Diagnosis: Benign neoplasm of colon Patient Data Age: 59 Gender: M Height: 1.75 m Weight: 97.7 kg Allergies Allergy/AdvReac Type Severity Reaction Status Date / Time garlic Allergy Severe Chest Pain Verified 09/27/24 08:53 Home Medications ?Medication ?Instructions ?Recorded ?Confirmed ?Type aspirin 81 mg tablet,delayed 81 mg PO DAILY 01/01/22 09/27/24 History release gabapentin 300 mg capsule 300 mg PO BID 01/01/22 09/27/24 History metformin 500 mg tablet 500 mg PO BID 01/01/22 09/27/24 History pantoprazole 40 mg tablet,delayed 40 mg PO QAM 01/01/22 09/27/24 History release albuterol sulfate 90 mcg/actuation 1 puff inhalation Q4H PRN 05/01/22 06/03/24 Rx aerosol inhaler Shortness Of Breath Or Wheezing #8.5 grams budesonide 160 mcg-glycopyr 9 See Rx Instructions .Route 07/17/23 09/27/24 Rx mcg-formot 4.8 mcg/actuation HFA .COMPLEX #10.7 grams inhaler (Breztri [employer]osphere) albuterol sulfate 0.63 mg/3 mL 0.63 mg inhalation Q4-6H PRN 12/09/23 06/03/24 History solution for nebulization shortness of breath or wheezing dulaglutide 3 mg/0.5 mL 3 mg subcut WEEKLY 12/09/23 09/27/24 [facility] montelukast 10 mg tablet 10 mg PO DAILY 09/08/24 09/27/24 History Patient hx anesthesia problems: none Family hx anesthesia problems: none Results Review: All pre-operative results and documents have been reviewed as part of the pre-operative evaluation. [facility] Past Medical History Medical History (Updated 09/27/24 @ 09:15 by Simone Tuttle MD) Colon polyp Bronchitis EVANGELISTA (obstructive sleep apnea) Diabetes GERD (gastroesophageal reflux disease) COPD (chronic obstructive pulmonary disease) Sciatica of left side Social History Social History Smoking packs per day: 1 Smoking cigarettes per day: 20.0 Years smoked: 35 Smoking pack-years: 35.00 Smoking status: Former smoker Tobacco type: cigarettes Smoking end date: 09/04/12 Alcohol intake: current Drinks per week: 6 Substance use: never Substance use type: does not use Living arrangements: with family Spiritual care concerns: No Anes - Eval Final PreProcedure Day of Procedure 09/27/24 07:28 Patient weight: obese Heart: regular rate and rhythm Lungs: clear to auscultation Airway: Mallampati scale class II Neurological: alert and oriented Last oral intake: >/= 8 hours ASA classification: III Emergent: no Anesthetic plan: proceed Anesthesia type and monitoring: general GIVS and standard monitoring Results Review: All pre-operative results and documents have been reviewed as part of the pre-operative evaluation. Informed Consent: The patient's anesthetic plan and its attendant risks and benefits were discussed with the patient/family/POA. Questions were solicited and answers provided to the satisfaction of the patient/family/POA.
[2024-09-27 08:58] VITALS: BP 141/89; PULSE 78; RESP 19; TEMP 36.2; O2SAT 98
[2024-09-27] MEDS: LACTATED RINGERS 1,000 ML 150 ML IV CONT (09:09)
--- NOTE | 2024-09-27 09:14 | P.HP_ITS ---
History of Present Illness History of Present Illness Consent: Risks, benefits, and alternatives have been discussed and questions answered. Patient agrees to proceed with procedure. Chief complaint: Benign neoplasm of colon Narrative: Skinny Valdivia is a 59 year old male with colon polyp 5 years ago Review of Systems Review of Systems: All systems reviewed & are unremarkable except as noted in HPI and below PMFSH Past Medical History Medical History (Updated 09/27/24 @ 09:15 by Simone Tuttle MD) Colon polyp Bronchitis EVANGELISTA (obstructive sleep apnea) Diabetes GERD (gastroesophageal reflux disease) COPD (chronic obstructive pulmonary disease) Sciatica of left side Social History Social History Smoking packs per day: 1 Smoking cigarettes per day: 20.0 Years smoked: 35 Smoking pack-years: 35.00 Smoking status: Former smoker Tobacco type: cigarettes Smoking end date: 09/04/12 Alcohol intake: current Drinks per week: 6 Substance use: never Substance use type: does not use Living arrangements: with family Spiritual care concerns: No Meds Home Medications and Allergies Home Medications ?Medication ?Instructions ?Recorded ?Confirmed ?Type aspirin 81 mg tablet,delayed 81 mg PO DAILY 01/01/22 09/27/24 History release gabapentin 300 mg capsule 300 mg PO BID 01/01/22 09/27/24 History metformin 500 mg tablet 500 mg PO BID 01/01/22 09/27/24 History pantoprazole 40 mg tablet,delayed 40 mg PO QAM 01/01/22 09/27/24 History release albuterol sulfate 90 mcg/actuation 1 puff inhalation Q4H PRN 05/01/22 06/03/24 Rx aerosol inhaler Shortness Of Breath Or Wheezing #8.5 grams budesonide 160 mcg-glycopyr 9 See Rx Instructions .Route 07/17/23 09/27/24 Rx mcg-formot 4.8 mcg/actuation HFA .COMPLEX #10.7 grams inhaler (Breztri Aerosphere) albuterol sulfate 0.63 mg/3 mL 0.63 mg inhalation Q4-6H PRN 12/09/23 06/03/24 History solution for nebulization shortness of breath or wheezing dulaglutide 3 mg/0.5 mL 3 mg subcut WEEKLY 12/09/23 09/27/24 [facility] montelukast 10 mg tablet 10 mg PO DAILY 09/08/24 09/27/24 History Allergies Allergy/AdvReac Type Severity Reaction Status Date / Time garlic Allergy Severe Chest Pain Verified 09/27/24 08:53 Vital Signs Vital Signs - 24 hr 09/27/24 08:58 Temperature 97.2 F L Pulse Rate 78 Respiratory Rate 19 Blood Pressure 141/89 H Pulse Oximetry 98 Oxygen Delivery Room Air Exam Const: General: comfortable and no acute distress HENMT: Face/Nose/Sinus: Normal nares present Eyes: General: appearance normal, both eyes and all related structures Neck: Neck: no JVD Resp: Auscultation: clear to auscultation bilaterally Cardio: Rate: regular rate Rhythm: regular rhythm GI: Inspection: non-distended GI Palp: Yes Soft to palpation Skin: General skin exam: normal color Neuro: Speech: normal speech Extrem: General: normal to inspection Psych: Mental Status: mental status grossly normal Assessment and Plan Assessment and plan (1) Colon polyp: Code(s): K63.5 - Polyp of colon Status: Acute Assessment and Plan: colonoscopy
--- NOTE | 2024-09-27 09:31 | S_PTH ---
PATIENT: Skinny Valdivia LOC: [facility]#:[id number] AGE/SX: 59/M ROOM: RE09/27/[address]: Simone Tuttle MD : 1965 BED: DIS: 09/27/2024 SPEC #: [id number] RECD: 09/27/24 11:00 STATUS: ROSARIO REMarie #: [id number] WIL: 09/27/24 09:[address]: Simone Tuttle DEPT: [facility] RECD BY: Leslie Thomas ENTERED: 09/27/24 11:01 SP TYPE: Surgical OTHR DR: Irving France MD Tissues: A - Colon Polypectomy Procedures: Hematoxylin and Eosin Stain Gross and Microscopic Level 4
[2024-09-27 09:33] VITALS: BP 125/76; PULSE 81; RESP 15; O2SAT 96
[2024-09-27 09:43] VITALS: BP 122/76; PULSE 81; RESP 19; O2SAT 98
[2024-09-27 09:53] VITALS: BP 140/66; PULSE 80; RESP 22; O2SAT 98
== END 2024-09-27 10:05 | disposition home or self-care (01) ==
PROVIDERS: PCP Internal Medicine; Referring Provider Internal Medicine; Visit Provider Internal Medicine Gastroenterology
PROC: 0DJD8ZZ Inspection of Lower Intestinal Tract, Via Natural or Artificial Opening Endoscopic (ICD-10-PCS; CPT 45378; principal; 2024-09-27 10:00)
DX: Z12.11 Encounter for screening for malignant neoplasm of colon (principal); D12.5 Benign neoplasm of sigmoid colon; K63.5 Polyp of colon; K64.8 Other hemorrhoids; K57.30 Diverticulosis of large intestine without perforation or abscess without bleeding; E11.9 Type 2 diabetes mellitus without complications; K21.9 Gastro-esophageal reflux disease without esophagitis; J44.9 Chronic obstructive pulmonary disease, unspecified; G47.33 Obstructive sleep apnea (adult) (pediatric); Z79.82 Long term (current) use of aspirin; Z79.84 Long term (current) use of oral hypoglycemic drugs; Z79.51 Long term (current) use of inhaled steroids; Z79.85 Long-term (current) use of injectable non-insulin antidiabetic drugs; Z87.891 Personal history of nicotine dependence
CPT/HCPCS: 45385; 82948; 88305; J2003; J2704; J7120